=== PATIENT | female | born 1995 | race African-American/Black ===

== ENCOUNTER 2018-11-25 11:48 | Emergency (ER) | payer OTHER ==
[~2018-11-25] VITALS: Ht 152.4 cm; Wt 50.0 kg
[2018-11-25 12:55] LABS: BASO % 0.7 % (0.0-1.0); EOS # 0.2 10^3/uL (0.0-0.50); EOS % 2.5 % (0.0-3.0); HEMATOCRIT 36.4 % (36.0-47.0); HEMOGLOBIN 12.5 g/dl (12.0-15.5); LYMPH # 1.3 10^3/uL (1.5-6.5); LYMPH % 22.1 % (24.0-44.0); MEAN CORPUSCULAR HEMOGLOBIN 29.5 pg (27.0-33.0); MEAN CORPUSCULAR HGB CONC 34.3 g/dl (32.0-36.5); MEAN CORPUSCULAR VOLUME 85.8 fl (80.0-96.0); MONO # 0.5 10^3/uL (0.0-0.8); MONO % 9.1 % (0.0-5.0); NEUTROPHILS # 3.9 10^3/uL (1.8-7.7); NEUTROPHILS % 65.4 % (36.0-66.0); PLATELET COUNT, AUTOMATED 254 10^3/uL (150-450); RED BLOOD COUNT 4.24 10^6/uL (4.00-5.40); WHITE BLOOD COUNT 5.9 10^3/uL (4.0-10.0)
[2018-11-25 13:28] LABS: BLOOD UREA NITROGEN 10 MG/DL (7-18); C REACTIVE PROTEIN QUANTITATIV 0.56 MG/DL (0.00-0.30); CALCIUM LEVEL 8.2 MG/DL (8.5-10.1); CARBON DIOXIDE LEVEL 25 MEQ/L (21-32); CHLORIDE LEVEL 109 MEQ/L (98-107); CK-MB VALUE MASS < 1.0 NG/ML (<3.6); CPK CREATINE PHOSPHOKINASE 111 U/L (26-192); CREATININE FOR GFR 0.78 MG/DL (0.55-1.30); ERYTHROCYTE SEDIMENTATION RATE 20 mm/hr (0-20); GLOMERULAR FILTRATION RATE > 60.0 (>60); GLUCOSE, FASTING 85 MG/DL (70-100); POTASSIUM SERUM 3.7 MEQ/L (3.5-5.1); SODIUM LEVEL 141 MEQ/L (136-145); TROPONIN I < 0.02 NG/ML (< 0.10)
[2018-11-25] MEDS ORDERED: ISOVUE-370 76% 100ML VIAL (Q9967) As Ordered ONE (13:44)
--- NOTE | 2018-11-25 13:46 | REP ---
Clinical: chest pain. Comparison: none. Technique: PA and lateral. Findings: The mediastinum and cardiac silhouette are normal. The lung jimenez are clear and without acute consolidation, effusion, or pneumothorax. The skeletal structures are intact and normal. Impression: 1. No acute cardiopulmonary process. Electronically Signed by Timothy Holland MD 11/25/2018 01:37 P
--- NOTE | 2018-11-25 14:12 | REP ---
Clinical: Acute chest pain. Technique: Axial contrast enhanced images from the thoracic inlet to the upper abdomen using 100 ml Isovue 370 intravenous contrast material with coronal and sagittal re-formations. Findings: Satisfactory enhancement of the pulmonary vasculature is achieved and no filling defects are identified to suggest pulmonary embolus. Thoracic aorta is normal caliber without aneurysm or dissection. Heart and pericardium are normal. Bilateral lung jimenez are well aerated and clear without acute pulmonary parenchymal consolidation or atelectasis. No nodule or mass lesion. No pleural effusion/reaction. No pneumothorax. No adenopathy. Impression: No evidence for pulmonary embolus. No acute pleuroparenchymal or mediastinal process. Electronically Signed by Timothy Holland MD 11/25/2018 02:03 P
[2018-11-25] MEDS ORDERED: NAPROXEN 250 MG TAB PO ONE (14:30)
[2018-11-25 14:52] VITALS: BP 92/51
--- NOTE | 2018-11-25 20:05 | ECGEPIP ---
Stationary ECG Study 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
[2018-11-25] MEDS ORDERED: KETO10TAB PO (21:57)
[2018-11-25] MEDS ORDERED: PRED20TA PO (21:57)
== END 2018-11-25 15:00 | disposition home or self-care (01) ==
LOC: M ED 11:48 → EDBD 11:48 → M ED 15:00
DX: R07.89 Other chest pain (principal); Z88.5 Allergy status to narcotic agent
CPT/HCPCS: 36415; 71046; 71275; 80048; 81025; 82550; 82553; 84443; 84484; 85025; 85379; 85652; 86140; 93005; 93041; 99284; Q9967

== ENCOUNTER 2018-11-25 19:05 | Emergency (ER) | payer OTHER ==
[~2018-11-25] VITALS: Ht 152.4 cm; Wt 50.0 kg
--- NOTE | 2018-11-25 20:16 | ECGEPIP ---
Stationary ECG Study 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
[2018-11-25] MEDS ORDERED: dexameTHASONE 20 MG/5 ML VIAL (J1100) IV ONE (20:30)
[2018-11-25] MEDS ORDERED: KETOROLAC 30 MG/ML VIAL (J1885) IV ONE (20:30)
[2018-11-25] MEDS ORDERED: PRED20TA PO (21:57)
[2018-11-25] MEDS ORDERED: KETO10TAB PO (21:57)
[2018-11-25 22:19] VITALS: BP 124/72
== END 2018-11-25 22:23 | disposition home or self-care (01) ==
LOC: M ED 19:05
DX: R07.1 Chest pain on breathing (principal); Z88.5 Allergy status to narcotic agent; R94.31 Abnormal electrocardiogram [ECG] [EKG]
CPT/HCPCS: 93005; 96374; 96375; 99284; J1100; J1885

== ENCOUNTER 2019-11-13 06:26 | Emergency (ER) | payer MEDICAID, OTHER ==
[~2019-11-13] VITALS: Ht 152.4 cm; Wt 54.0 kg
[~2019-11-13 06:26] MED LIST changes: -HOLTER XX
[2019-11-13] MEDS ORDERED: GI COCKTAIL 50ML BTL(HYOSCYAMINE/MAALOX/LIDOCAINE VISCOUS)(1:3:1) PO ONE (07:00)
[2019-11-13 07:08] LABS: BASO # 0.1 10^3/uL (0.0-0.2); BASO % 1.2 % (0.0-1.0); EOS # 0.3 10^3/uL (0.0-0.5); EOS % 6.7 % (0.0-3.0); HEMATOCRIT 37.1 % (36.0-47.0); HEMOGLOBIN 12.5 g/dl (12.0-15.5); LYMPH # 1.3 10^3/uL (1.5-5.0); LYMPH % 31.7 % (24.0-44.0); MEAN CORPUSCULAR HEMOGLOBIN 29.6 pg (27.0-33.0); MEAN CORPUSCULAR HGB CONC 33.7 g/dl (32.0-36.5); MEAN CORPUSCULAR VOLUME 87.9 fl (80.0-96.0); MONO # 0.3 10^3/uL (0.0-0.8); MONO % 7.6 % (0.0-5.0); NEUTROPHILS # 2.2 10^3/uL (1.5-8.5); NEUTROPHILS % 52.6 % (36.0-66.0); PLATELET COUNT, AUTOMATED 239 10^3/uL (150-450); RED BLOOD COUNT 4.22 10^6/uL (4.00-5.40); WHITE BLOOD COUNT 4.2 10^3/uL (4.0-10.0)
[2019-11-13 07:27] LABS: HCG, SERUM QUALITATIVE NEGATIVE (NEGATIVE)
[2019-11-13 07:40] LABS: ALBUMIN 3.7 GM/DL (3.2-5.2); ALT/SGPT 30 U/L (12-78); BILIRUBIN,DIRECT 0.2 MG/DL (0.0-0.2); BILIRUBIN,TOTAL 0.5 MG/DL (0.2-1.0); BLOOD UREA NITROGEN 14 MG/DL (7-18); CALCIUM LEVEL 9.1 MG/DL (8.5-10.1); CARBON DIOXIDE LEVEL 26 MEQ/L (21-32); CHLORIDE LEVEL 109 MEQ/L (98-107); CK-MB VALUE MASS < 1.0 NG/ML (<3.6); CPK CREATINE PHOSPHOKINASE 86 U/L (26-192); CREATININE FOR GFR 0.89 MG/DL (0.55-1.30); GLOMERULAR FILTRATION RATE > 60.0 (>60); GLUCOSE, FASTING 86 MG/DL (70-100); LIPASE 96 U/L (73-393); MB/CK RELATIVE INDEX 1.16 (< OR =4); POTASSIUM SERUM 4.1 MEQ/L (3.5-5.1); SODIUM LEVEL 140 MEQ/L (136-145); TROPONIN I < 0.02 NG/ML (< 0.10)
[2019-11-13] MEDS ORDERED: ISOVUE-370 76% 100ML VIAL (Q9967) As Ordered ONE (08:10)
[2019-11-13] MEDS ORDERED: HOLTER XX (08:52)
[2019-11-13 09:02] VITALS: BP 109/66
--- NOTE | 2019-11-13 09:49 | REP ---
Portable chest x-ray: Single view. History: Chest pain. Comparison study: November 25, 2018. Findings: The lungs are well inflated and clear. Pleural angles are sharp. Heart size is normal. Pulmonary vasculature is not increased. No bony abnormalities seen. Monitoring electrodes are noted. Impression: Negative portable chest x-ray. Electronically Signed by Elia Parekh MD 11/13/2019 07:45 A
--- NOTE | 2019-11-13 09:53 | REP ---
Clinical: Acute chest pain . Technique: Axial contrast enhanced images from the thoracic inlet to the upper abdomen using 75 ml Isovue 370 intravenous contrast material with multiplanar re-formations. Findings: Satisfactory enhancement of the pulmonary vasculature is achieved and no filling defects are identified to suggest pulmonary embolus. Further evaluation of the mediastinum demonstrates normal thoracic aorta, heart and pericardium. The bilateral lung jimenez are well aerated and clear without consolidation pleural effusion or pneumothorax. Tracheobronchial tree is patent. No nodule or mass lesion is identified. No adenopathy noted. Surrounding musculoskeletal structures intact Impression: No evidence for pulmonary embolus. No acute mediastinal or pleural parenchymal process. Electronically Signed by Timothy Holland MD 11/13/2019 08:33 A
--- NOTE | 2019-11-13 20:33 | ECGEPIP ---
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
== END 2019-11-13 09:08 | disposition home or self-care (01) ==
LOC: M ED 06:26
DX: R00.2 Palpitations (principal); R06.09 Other forms of dyspnea; R10.13 Epigastric pain; R00.1 Bradycardia, unspecified; I45.19 Other right bundle-branch block; Z86.79 Personal history of other diseases of the circulatory system; Z88.5 Allergy status to narcotic agent
CPT/HCPCS: 71045; 71275; 80048; 80076; 82550; 82553; 83690; 84703; 85025; 93005; 93041; 94760; 99284; Q9967

== ENCOUNTER → 2019-11-13 | Outpatient (CLI) | payer MEDICAID ==
[~2019-11-13] MED LIST: HOLTER XX; KETO10TAB PO; PRED20TA PO
--- NOTE | 2019-11-14 21:56 | HOLTMON ---
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 30 PACs, which included 28 single beats and one couplet. No supraventricular tachycardia. Symptom correlation: 5:48 AM, palpitations and dyspnea, sinus tachycardia 106 bpm. 2:12 PM, palpitations and dyspnea, sinus rhythm 75 bpm. 5:20 PM, palpitations, dyspnea, sinus rhythm 63 bpm. 6:07 PM, palpitations, sinus rhythm, 74 bpm. 5:07 AM, palpitations, dyspnea, nausea, dizzy, sinus rhythm 86 bpm. 6:50 AM, palpitations, dizzy, sinus rhythm 73 bpm. 9:30 AM, not feeling well, sinus rhythm 64 bpm. Electronically Signed on 11-14-2019 21:55:38 EST by Terrence Ivan
== END ==
LOC: M EKG 09:21
PROVIDERS: ATTEND Emergency Medicine
DX: R00.2 Palpitations (principal); Z86.79 Personal history of other diseases of the circulatory system

== ENCOUNTER → 2019-12-18 | Outpatient (CLI) | payer MEDICAID ==
[~2019-12-18] MED LIST changes: +HOLTER XX
== END ==
LOC: M LABSMTC 10:27
PROVIDERS: ATTEND Family Medicine
DX: Z11.59 Encounter for screening for other viral diseases (principal); Z20.828 Contact with and (suspected) exposure to other viral communicable diseases
CPT/HCPCS: 87502; U0002

== ENCOUNTER 2020-03-22 07:55 | Emergency (ER) | payer MEDICAID, OTHER ==
[~2020-03-22] VITALS: Ht 152.4 cm; Wt 57.3 kg
[2020-03-22] MEDS ORDERED: NS 1,000 ML IV ONE (08:30)
[2020-03-22] MEDS ORDERED: ACETAMINOPHEN 500 MG TAB PO ONE (08:30)
[2020-03-22 08:59] LABS: BASO # 0.1 10^3/uL (0.0-0.2); BASO % 0.8 % (0.0-1.0); EOS # 0.3 10^3/uL (0.0-0.5); EOS % 4.1 % (0.0-3.0); HEMATOCRIT 38.1 % (36.0-47.0); HEMOGLOBIN 12.6 g/dl (12.0-15.5); LYMPH # 1.8 10^3/uL (1.5-5.0); LYMPH % 29.4 % (24.0-44.0); MEAN CORPUSCULAR HEMOGLOBIN 28.8 pg (27.0-33.0); MEAN CORPUSCULAR HGB CONC 33.1 g/dl (32.0-36.5); MEAN CORPUSCULAR VOLUME 87.2 fl (80.0-96.0); MONO # 0.5 10^3/uL (0.0-0.8); NEUTROPHILS # 3.5 10^3/uL (1.5-8.5); NEUTROPHILS % 57.4 % (36.0-66.0); PLATELET COUNT, AUTOMATED 276 10^3/uL (150-450); RED BLOOD COUNT 4.37 10^6/uL (4.00-5.40)
[2020-03-22 09:22] LABS: BILIRUBIN,DIRECT 0.2 MG/DL (0.0-0.2); BILIRUBIN,TOTAL 0.7 MG/DL (0.2-1.0); TOTAL PROTEIN 7.8 GM/DL (6.4-8.2)
[2020-03-22] MEDS ORDERED: ISOVUE-370 76% 100ML VIAL As Ordered ONE (09:48)
--- NOTE | 2020-03-22 10:10 | REP ---
Clinical: Right lower quadrant pain. Technique: Axial contrast enhanced images from the lung bases to the pubic symphysis using 100 ml Isovue 370 intravenous contrast material with coronal and sagittal re-formations. Findings: Lung bases are clear. Visualized heart and pericardium normal. Liver, spleen, pancreas, gallbladder, bilateral adrenal glands and kidneys are normal. The enteric system is without obstruction or acute inflammatory process. Normal terminal ileum and appendix are identified in the right lower quadrant. Pelvis demonstrates moderately distended bladder. Uterus and left adnexa appear normal. Right adnexa demonstrates 2.5 cm ovarian cyst and small amount of free fluid. No ascites. No free air. No adenopathy. Abdominal aorta and vasculature appears normal. Musculoskeletal structures are intact without acute osseous abnormality. Impression: 1. No definite acute abdominopelvic pathology appreciated. 2. Normal terminal ileum and appendix identified in the right lower quadrant. 3. 2.5 cm right ovarian cyst and small amount of right adnexal fluid likely physiologic and possibly related to patient's symptoms. Electronically Signed by Timothy Holland MD 03/22/2020 10:02 A
[2020-03-22] MEDS ORDERED: ONDANSETRON 4MG/2ML VIAL IV ONE (10:45)
--- NOTE | 2020-03-22 12:05 | REP ---
Clinical: Right lower quadrant pain . Technique: Transabdominal pelvic ultrasound followed by transvaginal examination for better evaluation of the endometrium and adnexa with color Doppler evaluation of the ovaries. Findings: Bladder is unremarkable and measures 8.4 x 6.0 x 3.5 cm . Normal anteverted uterus measures 7.1 x 3.8 x 4.8 cm . The endometrial complex measures 6.9 mm thickness. No discrete uterine or endometrial abnormalities are appreciated. Few small incidental Nabothian cyst noted. Bilateral ovaries are normal in vascularity without evidence for torsion. Right ovary measures 4.9 x 2.3 x 3.8 cm and includes 2.1 x 1.6 x 2.2 cm presumed hemorrhagic physiologic cyst ; R I = 0.48 . Left ovary measures 2.8 x 1.4 x 2.3 cm ; R I = 0.57 . Trace pelvic free fluid. No adnexal mass. Impression: 1. Normal uterus and left ovary. 2. Hemorrhagic cyst in the right ovary along with small amount of pelvic fluid likely physiologic and possibly related to patient's symptoms. Electronically Signed by Timothy Holland MD 03/22/2020 11:57 A
[2020-03-22 12:33] VITALS: BP 112/77
== END 2020-03-22 12:34 | disposition home or self-care (01) ==
LOC: M ED 07:55
DX: N83.201 Unspecified ovarian cyst, right side (principal)
CPT/HCPCS: 36415; 74177; 76830; 76856; 80047; 80076; 81001; 83605; 83690; 84702; 85025; 87040; 87086; 93976; 96374; 99284; J2405; Q9967

== ENCOUNTER → 2020-04-27 | Outpatient (CLI) | payer OTHER | LOC: M LABSMTC 10:00 | PROVIDERS: ATTEND Pediatrics | DX: Z11.59 Encounter for screening for other viral diseases (principal) ==

== ENCOUNTER → 2020-05-07 | Outpatient (CLI) | payer OTHER | LOC: M LABSMTC 13:15 | PROVIDERS: ATTEND Pediatrics | DX: Z11.59 Encounter for screening for other viral diseases (principal) | CPT/HCPCS: C9803; U0002 ==

== ENCOUNTER 2020-07-01 13:15 | Emergency (ER) | payer OTHER ==
[~2020-07-01] VITALS: Ht 152.4 cm; Wt 57.7 kg
[2020-07-01 13:59] LABS: BASO % 0.7 % (0.0-1.0); EOS # 0.2 10^3/uL (0.0-0.5); EOS % 4.2 % (0.0-3.0); HEMATOCRIT 39.7 % (36.0-47.0); HEMOGLOBIN 13.4 g/dl (12.0-15.5); LYMPH # 1.8 10^3/uL (1.5-5.0); LYMPH % 32.3 % (24.0-44.0); MEAN CORPUSCULAR HEMOGLOBIN 29.3 pg (27.0-33.0); MEAN CORPUSCULAR HGB CONC 33.8 g/dl (32.0-36.5); MEAN CORPUSCULAR VOLUME 86.9 fl (80.0-96.0); MONO # 0.5 10^3/uL (0.0-0.8); MONO % 8.1 % (0.0-5.0); NEUTROPHILS # 3.1 10^3/uL (1.5-8.5); NEUTROPHILS % 54.5 % (36.0-66.0); PLATELET COUNT, AUTOMATED 305 10^3/uL (150-450); RED BLOOD COUNT 4.57 10^6/uL (4.00-5.40); WHITE BLOOD COUNT 5.7 10^3/uL (4.0-10.0)
[2020-07-01 14:27] LABS: HCG, SERUM QUALITATIVE NEGATIVE (NEGATIVE)
[2020-07-01 14:39] LABS: BLOOD UREA NITROGEN 12 MG/DL (7-18); CALCIUM LEVEL 9.6 MG/DL (8.5-10.1); CARBON DIOXIDE LEVEL 27 MEQ/L (21-32); CHLORIDE LEVEL 108 MEQ/L (98-107); CREATININE FOR GFR 0.88 MG/DL (0.55-1.30); FREE T4 1.05 NG/DL (0.76-1.46); GLOMERULAR FILTRATION RATE > 60.0 (>60); GLUCOSE, FASTING 97 MG/DL (70-100); MAGNESIUM LEVEL 2.2 MG/DL (1.8-2.4); POTASSIUM SERUM 4.2 MEQ/L (3.5-5.1); SODIUM LEVEL 139 MEQ/L (136-145)
--- NOTE | 2020-07-01 14:54 | REPVR ---
PROCEDURE INFORMATION: Exam: XR Chest, 2 Views Exam date and time: 07/01/2020 1:17 PM Age: 24 years old Clinical indication: Other: Syncope; Additional info: Near syncope TECHNIQUE: Imaging protocol: XR of the chest Views: 2 views. COMPARISON: [place] PORTABLE CHEST X-RAY 11/13/2019 7:34 AM FINDINGS: Limitations: Multiple EKG leads are superimposed on the chest. Lungs: Unremarkable. No consolidation. Pleural space: Unremarkable. No pleural effusion. No pneumothorax. Heart/Mediastinum: Unremarkable. No cardiomegaly. Bones/joints: Unremarkable. IMPRESSION: No acute findings. Electronically signed by: Ousmane Wilde On 07/01/2020 14:53:51 PM
[2020-07-01 15:45] VITALS: BP 116/62
--- NOTE | 2020-07-01 18:34 | ECGEPIP ---
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
== END 2020-07-01 15:57 | disposition home or self-care (01) ==
LOC: M ED 13:15
DX: R55 Syncope and collapse (principal); Z88.6 Allergy status to analgesic agent

== ENCOUNTER → 2020-07-24 | Outpatient (CLI) | payer OTHER | LOC: M LABSMTC 13:11 | PROVIDERS: ATTEND Pediatrics | DX: Z20.828 Contact with and (suspected) exposure to other viral communicable diseases (principal) | CPT/HCPCS: C9803; U0002 ==

== ENCOUNTER → 2020-08-14 | Outpatient (CLI) | payer SELFPAY | LOC: M LABSMTC 11:50 | PROVIDERS: ATTEND Pediatrics | DX: Z20.828 Contact with and (suspected) exposure to other viral communicable diseases (principal) ==